=== PATIENT | male | born 2005 | race African-American/Black ===

== ENCOUNTER 2023-08-26 10:04 | Emergency (ER) | payer OTHER, SELFPAY ==
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
[2023-08-26 10:12] VITALS: BP 113/62; BP 116/70; PULSE 48; PULSE 52; RESP 18; TEMP 36.8; O2SAT 100; BMI 21.4
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
[2023-08-26 11:38] VITALS: BP 134/76; PULSE 78; RESP 18; TEMP 36.6; O2SAT 98
[2023-08-26] MEDS: Acetaminophen 325 MG TABLET 975 MG PO (11:43)
[2023-08-26] MEDS: Ibuprofen 600 MG TABLET PO (11:43)
[2023-08-26 11:44] VITALS: BP 134/76; PULSE 78; RESP 18; TEMP 36.6; O2SAT 98
== END 2023-08-26 11:58 | disposition home or self-care (01) ==
PROVIDERS: Emergency Provider Emergency Medicine
DX: S13.4XXA Sprain of ligaments of cervical spine, initial encounter (principal); S40.212A Abrasion of left shoulder, initial encounter; T16.1XXA Foreign body in right ear, initial encounter; M54.2 Cervicalgia; R51.9 Headache, unspecified; W44.G1XA Audio device entering into or through a natural orifice, initial encounter; V43.52XA Car driver injured in collision with other type car in traffic accident, initial encounter; Y93.9 Activity, unspecified; Y92.410 Unspecified street and highway as the place of occurrence of the external cause; Y99.8 Other external cause status
CPT/HCPCS: 69200; 72040; 99283; 99284